=== PATIENT | female | born 1975 | race Caucasian/White ===

== ENCOUNTER → 2016-06-27 | Outpatient (CLI) | payer OTHER | LOC: M WUC 08:21 | PROVIDERS: ATTEND Physician Assistant | DX: I73.00 Raynaud's syndrome without gangrene (principal) ==

== ENCOUNTER → 2016-10-20 | Outpatient (REF) | payer OTHER ==
[~2016-10-20] MED LIST: ALBU17IN2 INH; AMBI10TA PO; CLAR1TAB2 PO; EFFE75CA75 PO; LOVE1INJ SC; OXYC1TAB23 PO; PYRI1TAB5 PO
== END ==
LOC: M LAB REF 12:51
PROVIDERS: ATTEND Obstetrics & Gynecology
DX: Z12.4 Encounter for screening for malignant neoplasm of cervix (principal)

== ENCOUNTER → 2016-12-03 | Outpatient (REF) | payer OTHER | LOC: M LAB REF 11:37 | PROVIDERS: ATTEND Physician Assistant | DX: R35.0 Frequency of micturition (principal) ==

== ENCOUNTER 2017-01-18 08:30 | Day surgery (SDC) | payer OTHER ==
[~2017-01-18] VITALS: Ht 160 cm; Wt 101.2 kg
[2017-01-18] VITALS (7 sets, daily range): BP systolic 105–138; BP diastolic 59–83
[~2017-01-18 08:30] MED LIST changes: -LOVE1INJ SC; -OXYC1TAB23 PO; -PYRI1TAB5 PO
[2017-01-18] MEDS ORDERED: LR 1,000 ML IV ONE (08:45)
[2017-01-18] MEDS ORDERED: LIDOCAINE 1% MDV 20ML VIAL SC ONE (09:00)
[2017-01-18 09:08] LABS: MEAN CORPUSCULAR HGB CONC 32.8 g/dl (32.0-36.5); MEAN CORPUSCULAR VOLUME 88.4 fl (80.0-96.0); RED CELL DISTRIBUTION WIDTH 12.6 % (11.5-14.5); WHITE BLOOD COUNT 9.6 10^3/uL (4.0-10.0)
[2017-01-18 09:24] LABS: CONTROL LINE HCG INT CTR LINE PRESENT
[2017-01-18] MEDS ORDERED: PYRI1TAB5 PO (09:43)
[2017-01-18] MEDS ORDERED: BUPIVACAINE HCL 0.25% 30 ML VIAL As Ordered ONE (10:15)
[2017-01-18] MEDS ORDERED: LIDOCAINE 2% INJ 100 MG/5 ML SDV (FOR ANES.) As Ordered ONE (11:49)
[2017-01-18] MEDS ORDERED: HYDROmorphone HCL 2 MG/ML 1ML VIAL (J1170) As Ordered ONE (11:49)
[2017-01-18] MEDS ORDERED: PROPOFOL 200 MG/20 ML VIAL As Ordered ONE (11:49)
[2017-01-18] MEDS ORDERED: ONDANSETRON 4MG/2ML VIAL (J2405) As Ordered ONE (11:49)
[2017-01-18] MEDS ORDERED: KETOROLAC 60 MG/2 ML VIAL (J1885) As Ordered ONE (11:49)
[2017-01-18] MEDS ORDERED: fentaNYL 250 MCG/5 ML INJECTION (J3010) As Ordered ONE (11:49)
[2017-01-18] MEDS ORDERED: dexameTHASONE 4 MG/ML 1ML VIAL (J1100) As Ordered ONE (11:49)
[2017-01-18] MEDS ORDERED: ePHEDrine SULFATE 25 MG/5 ML(5MG/ML) SYRINGE As Ordered ONE (11:49)
[2017-01-18] MEDS ORDERED: ROCURONIUM BROMIDE 50 MG/5 ML VIAL/SYRINGE As Ordered ONE (11:49)
[2017-01-18] MEDS ORDERED: MIDAZOLAM INJ 2 MG/2 ML VIAL (J2250) As Ordered ONE (11:49)
[2017-01-18] MEDS ORDERED: GLYCOPYRROLATE INJ 0.2 MG/ML 2 ML VIAL As Ordered ONE (11:51)
[2017-01-18] MEDS ORDERED: NEOSTIGMINE 10 MG/10 ML VIAL (J2710) As Ordered ONE (11:51)
[2017-01-18] MEDS ORDERED: LR 1,000 ML IV SCH (14:00)
[2017-01-18] MEDS ORDERED: HYDROmorphone HCL 1 MG/ML SYRINGE (J1170) IV PRN (14:00)
[2017-01-18] MEDS ORDERED: ONDANSETRON 4MG/2ML VIAL (J2405) IV PRN (14:00)
[2017-01-18] MEDS ORDERED: PERCOCET 5MG/325MG TAB PO PRN ×2 (14:00)
[2017-01-18] MEDS ORDERED: fentaNYL 100 MCG/2 ML INJECTION (J3010) IV PRN (14:00)
[2017-01-18] MEDS ORDERED: PROMETHAZINE INJ 25 MG/ML VIAL (J2550) IV PRN (14:15)
[2017-01-18] MEDS ORDERED: zolPIDEM TARTRATE 10MG TAB PO PRN (14:15)
[2017-01-18] MEDS ORDERED: KETOROLAC 30 MG/ML VIAL (J1885) IV ONE (14:15)
--- NOTE | 2017-01-18 14:19 | RO ---
DATE OF PROCEDURE: 01/18/2017 PREPROCEDURE DIAGNOSES: 1. Dysmenorrhea. 2. BRCA mutation. POSTPROCEDURE DIAGNOSES: 1. Dysmenorrhea. 2. BRCA mutation. 3. Endometriosis PROCEDURE: 1. Robotic assisted laparoscopic hysterectomy. 2. Bilateral salpingo-oophorectomy. 3. Cystoscopy. SURGEON: Dr. Fallon Loyola [employer]: None. ANESTHESIA: Endotracheal anesthesia. ESTIMATED BLOOD LOSS: 50 mL INTRAVENOUS FLUIDS: 1700 mL of lactated Ringers solution. URINE OUTPUT: 150 mL. SPECIMENS: Cervix, uterus, bilateral fallopian tubes and ovaries. PREOPERATIVE ANTIBIOTICS: 2 grams of Ancef. Infection classification II. FINDINGS: The patient with normal appearing uterus, bilateral adnexa. Endometriosis visualized on left uterosacral ligament. Cystoscopic findings: revealed normal bladder mucosa. No foreign bodies were visualized. Bilateral ureteral jets were observed. DESCRIPTION OF PROCEDURE: After informed consent was obtained and written consent was reviewed, the patient was brought to the operating room where general endotracheal anesthesia was obtained. She was then placed in the lithotomy position and was prepped and draped in the normal sterile fashion. Time-out in the operating room was then performed identifying the patient, procedure to be performed as well as drug allergies. A speculum was placed revealing the cervix , anterior and posterior aspect of the cervix was stitched with 0 Vicryl. The uterus was then sounded to 8 cm. A medial VK uterine manipulator was then advanced through the cervical os for means to manipulate the uterus. The uterine balloon was insufflated to 10 mL of air. The cervical cap was placed over the cervix. The vaginal sleeve was advanced down to the vagina. Instruments were removed from the patient's vagina. A Holland catheter was then placed and set to gravity. Gloves were changed and attention was turned to the patient's abdomen where a Veress needle was placed through the umbilicus. Pneumoperitoneum was then obtained with CO2 gas. Supraumbilical area was infused with 0.25% Marcaine and an incision was made in this area. A 12 mm trocar and sleeve was advanced through this incision. The laparoscope was then replaced revealing intra-abdominal placement. Two lateral ports to the left and right of the umbilicus were placed. Each of these ports were infused with 0.25% Marcaine. An incision was made and in each one of these incisions an 8 mm trocar with sleeves was advanced through each one of these incisions under direct visualization. A fourth trocar was placed on the left side of the patient's abdomen. This area was infused with 0.25% Marcaine and an incision was made in this area and another 8 mm trocar sleeve was advanced through this incision under direct visualization. Next, the da Gloria was advanced to the patient's table and was docked utilizing a camera arm and two operative arms. Next, utilizing a PK bipolar cautery, the utero-ovarian ligaments bilaterally were cauterized and ligated with good hemostasis noted. The round ligaments on both sides were cauterized and ligated with good hemostasis noted. The anterior lip of the broad ligaments were then dissected along the bladder creating a bladder flap. The remainder of the broad ligaments and cardinal ligaments were cauterized and ligated with good hemostasis noted. The uterine artery was skeletonized bilaterally and was cauterized and ligated with good hemostasis noted. Next, the inferior and posterior colpotomy incision made and the uterus was removed vaginally with good hemostasis noted. Next, a bilateral salpingo-oophorectomy was then performed. The right adnexal was placed on traction. The infundibulopelvic ligament was then identified, was cauterized and ligated with good hemostasis noted and the right adnexa was brought out through the vaginal incision. In a similar fashion, the left adnexa was placed on traction. The infundibulopelvic ligaments were identified, cauterized and ligated with good hemostasis noted. Specimen was then brought out through a vaginal incision. Next, the vaginal cuff was closed with #2-0 V-Loc system in a running fashion. Surgical sites were inspected and noted to be hemostatic. Anne was applied over the surgical whitney. Cystoscopy was then performed. The Holland catheter was removed from the patient' s bladder and the cystoscope was advanced transurethrally to the bladder. Cystoscopy was performed revealing normal bladder mucosa, bilateral jets with no foreign bodies observed. The bladder was then drained and gloves were changed. Attention was turned to the patient's abdomen where all four skin incisions were closed with #4-0 Monocryl and dressed with Dermabond. The patient was then taken out of lithotomy position, was awakened from general anesthesia and taken to the recovery room in stable condition. Counts were correct. MTDD
[2017-01-18] MEDS: LR 1,000 ML IV SCH ×2 (15:18→22:00)
[2017-01-18] MEDS ORDERED: ENOXAPARIN 40 MG/0.4 ML SYRINGE (J1650) SC ONE (18:45)
[2017-01-18] MEDS: PERCOCET 5MG/325MG TAB PO PRN (20:27)
[2017-01-19] VITALS: BP 122/76
[2017-01-19 04:00] VITALS: BP 103/51
[2017-01-19] MEDS: LR 1,000 ML IV SCH (06:00)
[2017-01-19] MEDS: PERCOCET 5MG/325MG TAB PO PRN (06:15)
[2017-01-19 06:57] LABS: MEAN CORPUSCULAR HEMOGLOBIN 29.3 pg (27.0-33.0); MEAN CORPUSCULAR HGB CONC 33.1 g/dl (32.0-36.5); MEAN CORPUSCULAR VOLUME 88.6 fl (80.0-96.0); RED CELL DISTRIBUTION WIDTH 12.4 % (11.5-14.5); WHITE BLOOD COUNT 17.6 10^3/uL (4.0-10.0)
[2017-01-19 08:00] VITALS: BP 126/67
[2017-01-19] MEDS ORDERED: OXYC1TAB23 PO (08:53)
[2017-01-19] MEDS ORDERED: LOVE1INJ SC (09:40)
== END 2017-01-19 10:17 | disposition home or self-care (01) ==
LOC: M SDC 08:30 → M PED 14:28 → M SDC 01-19 10:17
PROVIDERS: ATTEND Obstetrics & Gynecology
DX: N94.6 Dysmenorrhea, unspecified (principal); D25.1 Intramural leiomyoma of uterus; N83.11 Corpus luteum cyst of right ovary; N83.12 Corpus luteum cyst of left ovary; Z15.01 Genetic susceptibility to malignant neoplasm of breast; N80.9 Endometriosis, unspecified; J45.909 Unspecified asthma, uncomplicated; Z88.0 Allergy status to penicillin; Z88.7 Allergy status to serum and vaccine; Z79.51 Long term (current) use of inhaled steroids; Z79.899 Other long term (current) drug therapy
CPT/HCPCS: 36415; 58571; 84703; 85027; 86850; 86900; 86901; 88307; 96372; 96374; A6024; J0690; J1100; J1170; J1650; J1885; J2250; J2405; J2710; J3010

== ENCOUNTER 2018-05-16 08:02 | Emergency (ER) | payer OTHER ==
[~2018-05-16] VITALS: Ht 162.6 cm; Wt 75.0 kg
[~2018-05-16 08:02] MED LIST changes: +EFFE75CA2 PO; -EFFE75CA75 PO; +LOVE1INJ SC; +OXYC1TAB23 PO; +PYRI1TAB5 PO
[2018-05-16] MEDS ORDERED: KETOROLAC 30 MG/ML VIAL (J1885) IM ONE (08:30)
[2018-05-16 12:18] VITALS: BP 139/87
[2018-05-16] MEDS ORDERED: PRED20TA PO (12:47)
--- NOTE | 2018-05-16 13:18 | REP ---
SOFT TISSUES NECK: AP and lateral views of the soft tissues of the neck are performed. There is no prevertebral soft tissue swelling. The adenoids are not enlarged. There is no enlargement of the epiglottis. The airway is widely patent. IMPRESSION: Negative exam. Electronically Signed by Enrico Lynn MD 05/16/2018 11:37 P
--- NOTE | 2018-05-16 13:20 | REP ---
CHEST, TWO VIEWS: Two views of the chest are performed and compared to prior study, 05/11/2005. Linear atelectatic changes are seen, predominantly in the right base. No consolidation is seen. There is mild underlying fibrotic change. The heart is normal in size. The mediastinal silhouette is unchanged. There are mild degenerative changes of the spine. IMPRESSION: Mild bibasilar fibroatelectatic changes. Electronically Signed by Enrico Lynn MD 05/16/2018 11:37 P
== END 2018-05-16 12:53 | disposition home or self-care (01) ==
LOC: M ED 08:02
DX: J06.9 Acute upper respiratory infection, unspecified (principal); B97.4 Respiratory syncytial virus as the cause of diseases classified elsewhere; Z88.5 Allergy status to narcotic agent; Z88.7 Allergy status to serum and vaccine; Z79.899 Other long term (current) drug therapy
CPT/HCPCS: 70360; 71046; 87486; 87581; 87633; 87798; 87880; 96372; 99283; J1885

== ENCOUNTER → 2018-05-17 | Outpatient (CLI) | payer OTHER ==
[~2018-05-17] MED LIST changes: +PRED20TA PO
--- NOTE | 2018-05-17 16:34 | REP ---
Chest two views HISTORY: Hypoxia Comparison: 05/16/2018 A minimal increase in interstitial markings is present in the lungs consistent with chronic interstitial change. Parenchymal density is present in the left lower lobe consistent with atelectasis or infiltrate. The heart is normal in size. The pulmonary vasculature is normal in appearance. The bony structure is intact. IMPRESSION: 1. Chronic interstitial change. 2. Left lower lobe atelectasis or infiltrate. Electronically Signed by Roldan Jackson MD 05/17/2018 04:25 P
== END ==
LOC: M RAD 16:03
PROVIDERS: ATTEND Family Medicine
DX: R91.8 Other nonspecific abnormal finding of lung field (principal); J96.01 Acute respiratory failure with hypoxia

== ENCOUNTER → 2018-06-14 | Outpatient (CLI) | payer OTHER ==
--- NOTE | 2018-06-15 07:40 | REP ---
Clinical: Given history of pulmonary fibrosis. Technique: Axial noncontrast high-resolution images from the thoracic inlet to the upper abdomen with coronal and sagittal re-formations. Findings: The bilateral lung whitney are well-aerated, relatively symmetric and clear. No consolidation, significant nodule, or mass lesion appreciated. No obvious significant interstitial disease or bronchiectasis. No effusion or pneumothorax. The mediastinum demonstrates normal thoracic aorta, pulmonary vasculature and heart/pericardium. No significant adenopathy. Moderate hiatal hernia identified at the gastroesophageal junction within the middle mediastinum. Surrounding musculoskeletal structures are intact. Limited upper abdomen demonstrates normal bilateral adrenal glands. Impression: No acute mediastinal or pleuroparenchymal process. No evidence for pulmonary fibrosis or significant interstitial disease. Electronically Signed by Juan M Perez MD 06/15/2018 07:31 A
== END ==
LOC: M RAD 14:38
PROVIDERS: ATTEND Family Medicine
DX: J84.10 Pulmonary fibrosis, unspecified (principal)

== ENCOUNTER → 2019-04-26 | Outpatient (CLI) | payer OTHER ==
[~2019-04-26] MED LIST changes: +ISOVUE-370 76% 100ML VIAL (Q9967) As Ordered ONE
--- NOTE | 2019-04-26 10:15 | REP ---
CT of the chest with IV contrast, CT pulmonary angiography: Comparison is the chest CT without IV contrast dated 06/14/2018. There are no emboli in the pulmonary trunk or central pulmonary arteries. There are no emboli in the lobe or segment pulmonary artery branches. There is a fixed hiatal hernia measuring 6.2 cm in diameter, not significantly changed. There are no infiltrates or pleural effusions. There are no nodules or masses. The thoracic aorta is unremarkable. Cardiac size is normal. The visualized upper abdomen is unremarkable. Impression: There are no pulmonary emboli. Fixed hiatal hernia. Otherwise, negative CT study of the chest. Electronically Signed by Enrico Erazo MD 04/26/2019 10:06 A
== END ==
LOC: M RAD 09:17
PROVIDERS: ATTEND Family Medicine
DX: R06.02 Shortness of breath (principal)
CPT/HCPCS: 71275; Q9967

== ENCOUNTER 2019-06-15 11:16 | Day surgery (SDC) | payer OTHER ==
[~2019-06-15] VITALS: Ht 162.6 cm; Wt 88.9 kg
[~2019-06-15 11:16] MED LIST changes: +ATIV1TAB10 PO; +CETI10CH PO; -ISOVUE-370 76% 100ML VIAL (Q9967) As Ordered ONE; +LINZ290C PO; +NS 1,000 ML IV ONE; +PROV108A INH; +RABE1TAB PO
[2019-06-15] MEDS ORDERED: propofoL 200 MG/20 ML VIAL As Ordered ONE (12:34)
[2019-06-15] MEDS ORDERED: LIDOCAINE 2% INJ 100 MG/5 ML SDV (FOR ANES.) As Ordered ONE (12:35)
[2019-06-15] MEDS ORDERED: fentaNYL 100 MCG/2 ML INJECTION (J3010) As Ordered ONE (13:45)
--- NOTE | 2019-06-15 14:02 | ROOR ---
Patient Name: Jasmina Panchal Procedure Date: 06/15/2019 1:39 PM Date of : 1975 Age: 44 Room: [facility] Gender: Female Note Status: Finalized Procedure: Upper GI endoscopy Indications: Dysphagia, Chest pain (non cardiac) Providers: Tom MONTES MD Referring MD: FUNMI REYES MD Requesting Provider: Medicines: Monitored Anesthesia Care Complications: No immediate complications. Procedure: Pre-Anesthesia Assessment: - The heart rate, respiratory rate, oxygen saturations, blood pressure, adequacy of pulmonary ventilation, and response to care were monitored throughout the procedure. The Endoscope was introduced through the mouth, and advanced to the second part of duodenum. The upper GI endoscopy was accomplished without difficulty. The patient tolerated the procedure well. Findings: Abnormal motility was noted in the esophagus. There are extra peristaltic waves in the esophageal body. Biopsies were taken with a cold forceps for histology. One benign-appearing, intrinsic moderate (circumferential scarring or stenosis; an endoscope may pass) stenosis was found at the gastroesophageal junction. This stenosis measured less than one cm (in length). The stenosis was traversed. A TTS dilator was passed through the scope. Dilation with a 15-16.5-18 mm balloon dilator was performed to 18 mm. The dilation site was examined and showed complete resolution of luminal narrowing. Biopsies were taken with a cold forceps for histology. A small hiatal hernia was present. The entire examined stomach was normal. The examined duodenum was normal. Impression: - Increased esophageal motility. Biopsied. - Benign-appearing esophageal stenosis. Dilated (18 mm). Biopsied. - Small hiatal hernia. - Normal stomach. - Normal examined duodenum. Recommendation: - Use Levsin, NuLev (hyoscyamine) 1-2 tabs SL q 4 hours PRN. - Observe patient's clinical course. - Continue present medications. Tom Montes MD Tom MONTES MD 06/15/2019 2:01:44 PM Electronically signed by Tom MONTES MD Number of Addenda: 0 Note Initiated On: 06/15/2019 1:39 PM Estimated Blood Loss: Estimated blood loss: none.
--- NOTE | 2019-06-15 14:20 | ROOR ---
Patient Name: Jasmina Panchal Procedure Date: 06/15/2019 1:39 PM Date of : 1975 Age: 44 Room: [facility] Gender: Female Note Status: Finalized Procedure: Colonoscopy Indications: Hematochezia, Change in bowel habits, Constipation Providers: Tom MONTES MD Referring MD: FUNMI REYES MD Requesting Provider: Medicines: Propofol per Anesthesia Complications: No immediate complications. Procedure: Pre-Anesthesia Assessment: - The heart rate, respiratory rate, oxygen saturations, blood pressure, adequacy of pulmonary ventilation, and response to care were monitored throughout the procedure. The Colonoscope was introduced through the anus and advanced to 10 cm into the ileum. The colonoscopy was performed without difficulty. The patient tolerated the procedure well. The quality of the bowel preparation was good. Findings: The perianal and digital rectal examinations were normal. A 4 mm polyp was found in the ascending colon. The polyp was sessile. The polyp was removed with a cold snare. Resection and retrieval were complete. Small Internal Hemorrhoids. The exam was otherwise normal throughout the examined colon. The terminal ileum appeared normal. Impression: - One 4 mm polyp in the ascending colon, removed with a cold snare. Resected and retrieved. - Small Internal Hemorrhoids. - The examined portion of the ileum was normal. Recommendation: - Continue present medications. - Repeat colonoscopy in 5 years for surveillance. Tom Montes MD Tom MONTES MD 06/15/2019 2:20:00 PM Electronically signed by Tom MONTES MD Number of Addenda: 0 Note Initiated On: 06/15/2019 1:39 PM Estimated Blood Loss: Estimated blood loss: none.
[2019-06-15 14:45] VITALS: BP 161/81
== END 2019-06-15 15:01 | disposition home or self-care (01) ==
LOC: M OPP 11:16
PROVIDERS: ATTEND Internal Medicine Gastroenterology
DX: D12.2 Benign neoplasm of ascending colon (principal); K64.8 Other hemorrhoids; K92.1 Melena; R19.4 Change in bowel habit; K22.4 Dyskinesia of esophagus; K22.2 Esophageal obstruction; K44.9 Diaphragmatic hernia without obstruction or gangrene; R13.10 Dysphagia, unspecified; R07.89 Other chest pain; Z80.0 Family history of malignant neoplasm of digestive organs; J45.909 Unspecified asthma, uncomplicated; Z79.899 Other long term (current) drug therapy; Z88.5 Allergy status to narcotic agent; Z88.7 Allergy status to serum and vaccine
CPT/HCPCS: 43239; 43249; 45385; 88305; J3010

== ENCOUNTER → 2021-06-25 | Outpatient (CLI) | payer OTHER ==
[~2021-06-25] MED LIST changes: +ISOVUE-370 76% 100ML VIAL ONE; -NS 1,000 ML IV ONE; -RABE1TAB PO; +RABE1TAB4 PO
== END ==
LOC: M PLAIMG 08:37
PROVIDERS: ATTEND Family Medicine
DX: K44.0 Diaphragmatic hernia with obstruction, without gangrene (principal)
CPT/HCPCS: 71260; Q9967

== ENCOUNTER → 2021-12-09 | Outpatient (CLI) | payer OTHER ==
[~2021-12-09] MED LIST changes: +ALBU6.7H6 INH; -ISOVUE-370 76% 100ML VIAL ONE; -PROV108A INH
== END ==
LOC: M CARPUL 09:42
PROVIDERS: ATTEND Internal Medicine Pulmonary Disease
DX: J45.40 Moderate persistent asthma, uncomplicated (principal)

== ENCOUNTER → 2021-12-15 | Outpatient (CLI) | payer OTHER ==
[2021-12-15 12:09] LABS: BASO # 0.1 10^3/uL (0.0-0.2); BASO % 1.3 % (0.0-1.0); EOS # 0.7 10^3/uL (0.0-0.5); EOS % 10.2 % (0.0-3.0); HEMATOCRIT 41.9 % (36.0-47.0); LYMPH # 2.6 10^3/uL (1.5-5.0); LYMPH % 36.4 % (24.0-44.0); MEAN CORPUSCULAR HEMOGLOBIN 27.6 pg (27.0-33.0); MONO # 0.6 10^3/uL (0.0-0.8); MONO % 7.7 % (2.0-8.0); NEUTROPHILS # 3.2 10^3/uL (1.5-8.5); NEUTROPHILS % 44.1 % (36.0-66.0); PLATELET COUNT, AUTOMATED 295 10^3/uL (150-450); RED BLOOD COUNT 4.71 10^6/uL (4.00-5.40); WHITE BLOOD COUNT 7.1 10^3/uL (4.0-10.0)
[2021-12-15 14:17] LABS: ALBUMIN 3.8 GM/DL (3.2-5.2); ALT/SGPT 23 U/L (12-78); BILIRUBIN,TOTAL 0.4 MG/DL (0.2-1.0); BLOOD UREA NITROGEN 9 MG/DL (7-18); C REACTIVE PROTEIN QUANTITATIV 0.64 MG/DL (0.00-0.30); CARBON DIOXIDE LEVEL 26 MEQ/L (21-32); CHLORIDE LEVEL 109 MEQ/L (98-107); GLOMERULAR FILTRATION RATE > 60.0 (>58); GLUCOSE, FASTING 52 MG/DL (70-100); SODIUM LEVEL 139 MEQ/L (136-145); TOTAL PROTEIN 7.3 GM/DL (6.4-8.2)
== END ==
LOC: M LAB 10:52
PROVIDERS: ATTEND Internal Medicine
DX: Z79.899 Other long term (current) drug therapy (principal)

== ENCOUNTER → 2021-12-15 | Outpatient (CLI) | payer OTHER ==
[2021-12-15 13:29] LABS: COLLAGEN EPINEPHRINE 200 SECONDS (74-162)
[2021-12-15 13:58] LABS: COLLAGEN ADP 129 SECONDS (56-103)
== END ==
LOC: M LAB 10:50
PROVIDERS: ATTEND Internal Medicine Pulmonary Disease
DX: J45.40 Moderate persistent asthma, uncomplicated (principal)

== ENCOUNTER → 2024-02-14 | Outpatient (REF) | payer OTHER ==
[2024-02-14 18:21] LABS: PERCENT SATURATION 6.5 % (13.2-45.0)
[2024-02-14 18:26] LABS: FERRITIN 5.5 NG/ML (7.3-270.7); FOLATE 17.9 NG/ML (>5.4)
== END ==
LOC: M LAB REF 16:25
PROVIDERS: ATTEND Internal Medicine
DX: D64.9 Anemia, unspecified (principal)

== ENCOUNTER → 2024-11-08 | Outpatient (CLI) | payer OTHER ==
[~2024-11-08] MED LIST changes: -AMBI10TA PO; -RABE1TAB4 PO; +RABE1TAB5 PO; +ZOLP-533 PO
== END ==
LOC: M SLEEP HO 10:32
PROVIDERS: ATTEND Internal Medicine Pulmonary Disease
DX: R06.81 Apnea, not elsewhere classified (principal); G47.9 Sleep disorder, unspecified